=== PATIENT | male | born 1980 | race Caucasian/White ===

== ENCOUNTER 2017-10-23 16:31 | Inpatient (IN) ==
[2017-10-23] MEDS ORDERED: Sod Chloride 0.9% Inj 1,000 ML IV.SIG ONE (16:58)
--- NOTE | 2017-10-23 17:06 | ED ---
HPI General Chief Complaint: Fever Stated Complaint: Fever Time Seen by Provider: 10/23/17 16:49 History of Present Illness HPI Narrative: Patient presents to the emergency department complaining of fever and body aches. He denies no sick contacts or recent travel. T-max is 100.9 on yesterday. He reports nausea, frontoparietal headache, photophobia, cough, sore throat, night sweats 3 days, but denies rash, neck pain, diarrhea, abdominal pain, or shortness of breath. Related Data Home Medications Medication Instructions Recorded Confirmed trazodone 50 mg PO DAILY 10/23/17 10/23/17 Allergies Allergy/AdvReac Type Severity Reaction Status Date / Time peanut Allergy unsure Verified 10/23/17 16:58 Review of Systems ROS Unobtainable All other systems reviewed negative except as stated in HPI [facility] Medical History Medical History Depression (Acute) Hernia (Acute) TIA (transient ischemic attack) (Acute) Lnbmt-Ieradfxuz-Idkzn (WPW) syndrome (Acute) Social History Social History Substance History: No History of Abuse Second Hand Smoke Exposure: No Smoking Status: Never smoker How Often Do You Have a Drink Containing Alcohol: Never Recent Travel in [facility] within the Last 8 Weeks: No Recent Out of Country Travel within the Last 8 Weeks: No Exam Narrative Exam Narrative: GENERAL: No acute distress. SKIN: Focused skin assessment warm/dry. HEAD: Atraumatic. Normocephalic. Positive frontal maxillary sinus tenderness to palpation. EYES: Pupils equal and round. No scleral icterus. No injection or drainage. ENT: No nasal bleeding or discharge. Mucous membranes pink and moist. Erythematous oropharynx and enlarged tonsils without exudate. NECK: Trachea midline. No JVD. CARDIOVASCULAR: Regular rate and rhythm. No murmur appreciated. RESPIRATORY: No accessory muscle use. Clear to auscultation. Breath sounds equal bilaterally. GASTROINTESTINAL: Abdomen soft, non-tender, nondistended. Hepatic and splenic margins not palpable. MUSCULOSKELETAL: No obvious deformities. No clubbing. No cyanosis. No edema. NEUROLOGICAL: Awake and alert. No obvious cranial nerve deficits. Motor grossly within normal limits. Normal speech. PSYCHIATRIC: Appropriate mood and affect; insight and judgment normal. Procedures Lumbar Puncture Time Out Performed: Yes Patient Position: left lateral decubitus Skin Prep: Povidone-Iodine 1% Local anesthetic used: Lidocaine 1% Amount of anesthesia used (mL): 5 Spinal Needle Gauge: 20G Interspace Used: L4-L5 Fluid Initially Obtained: clear Complications: none Course Initial Documented Vital Signs Temperature 100.1 F H 10/23/17 17:34 Pulse Rate 92 H 10/23/17 17:34 Respiratory Rate 18 10/23/17 17:34 Blood Pressure 125/75 10/23/17 17:34 Pulse Oximetry 98 10/23/17 17:34 Last Documented Vital Signs Temperature 100.1 F H 10/23/17 17:36 Pulse Rate 92 H 10/23/17 17:36 Respiratory Rate 18 10/23/17 17:36 Blood Pressure 127/75 10/23/17 17:36 Pulse Oximetry 99 10/23/17 17:36 Critical Care Time Critical Care Time: Yes Total Critical Care Time: 30 Attestation: Aggregate critical care time was 30 minutes. Time to perform other separately billable procedures was not included in the critical care time. My time did not include minutes spent treating any other patients simultaneously or on activities that did not directly contribute to the patient's treatment. The services I provided to this patient were to treat and/or prevent clinically significant deterioration that could result in: , increase morbidity. I provided critical care services requiring my management, as noted below: Chart data review, documentation time, medication orders and management, vital sign assessments/reviewing monitor data, ordering and reviewing lab tests, ordering and interpreting/reviewing x-rays and diagnostic studies, care of the patient and discussion of the patient with the admitting physicians. Medical Decision Making MDM Narrative Medical decision making narrative: Patient presents to the emergency department with fever, headache, and body aches. Patient placed on conveyor monitor, continuous pulse ox, and IV access obtained. Chest x-ray, head CT, labs ordered. Patient also given 1 L IV normal saline, tylenol 650mg po. Chest x- ray shows no acute abnormality. No leukocytosis, slight decrease in hemoglobin hematocrit. Influenza and rapid strep negative. Head CT: CONCLUSION:1. Suboptimal examination degraded by diffuse motion artifact.2. No evidence of hemorrhage or mass effect. urinalysis negative for evidence of infection. Elevated lactic acid. 192: Patient refuses lumbar puncture. He has been made aware of the benefits and risks of getting and not getting the procedure respectively. I will treat for possible meningitis, 1gram IV vancomycin and 2grans IV rocephin. Admit MD made aware. Patient states he wants to "take some time and think about it," as it relates to getting the LP. 1931: Per admit MD, patient now wants LP. Will consent for LP. 2003: LP complete, no complications, see procedure note. Differential Diagnosis Differential Diagnosis: Influenza, strep pharyngitis, viral illness, pneumonia, sinusitis, meningitis Lab Data Result diagrams: 10/23/17 17:25 10/23/17 17:25 Lab Results 10/23/17 10/23/17 10/23/17 Range/Units 16:58 17:25 17:25 WBC 8.6 (4.0-11.0) th/mm3 RBC 4.11 L (4.50-5.90) mil/mm3 Hgb 12.5 L (13.0-17.0) gm/dL Hct 36.2 L (39.0-51.0) % MCV 87.9 (80.0-100.0) fL MCH 30.5 (27.0-34.0) pg MCHC 34.7 (32.0-36.0) % RDW 15.5 (11.6-17.2) % Plt Count 153 (150-450) th/mm3 MPV 8.1 (7.0-11.0) fL Prelim Diff (Auto) Slide review pending Neut % (Auto) 71.6 H (16.0-70.0) % Lymph % (Auto) 19.3 (9.0-44.0) % [place] % (Auto) 8.7 H (0.0-8.0) % Eos % (Auto) 0.0 (0.0-4.0) % Baso % (Auto) 0.4 (0.0-2.0) % Neut # (Auto) 6.2 (1.8-7.7) th/mm3 Lymph # (Auto) 1.7 (1.0-4.8) th/mm3 [place] # (Auto) 0.7 (0.0-0.9) th/mm3 Eos # (Auto) 0.0 (0.0-0.4) th/mm3 Baso # (Auto) 0.0 (0.0-0.2) th/mm3 WBC Differential . Diff Scan Auto diff confirmed Differential Comment . PT 11.0 (9.8-11.6) sec INR 1.1 Ratio APTT (24.3-30.1) sec Sodium (136-145) meq/L Potassium (3.5-5.1) meq/L Chloride (98-107) meq/L Carbon Dioxide (21.0-32.0) meq/L Anion Gap (5-15) meq/L BUN (7-18) mg/dL Creatinine (0.60-1.30) mg/dL Estimated GFR (>89) mL/min Random Glucose (74-106) mg/dL Lactic Acid (0.4-2.0) mmol/L Calcium (8.5-10.1) mg/dL Total Bilirubin (0.2-1.0) mg/dL AST (15-37) U/L ALT (12-78) U/L Alkaline Phosphatase (45-117) U/L Total Protein (6.4-8.2) g/dL Albumin (3.4-5.0) g/dL Urine Color Yellow (Yellw/Straw) Urine Clarity Clear (Clear) Urine pH 6.0 (5.0-8.5) Ur Specific [place] 1.021 (1.002-1.035) Urine Protein Negative (Neg-Trace) mg/dL Urine Glucose (UA) Negative (Negative) mg/dL Urine Ketones Negative (Negative) mg/dL Urine Occult Blood Negative (Negative) Urine Nitrate Negative (Negative) Urine Bilirubin Negative (Negative) Urine Urobilinogen 2.0 H (Less than 2) mg/dL Ur Leukocyte Esterase Negative (Negative) Urine RBC Less than 1 (0-3) /hpf Urine WBC 1 (0-5) /hpf Urine Mucus Few H (Occasional) /lpf Micro UA Comment Culture not ind Urine Culture Comments Culture not ind 10/23/17 10/23/17 10/23/17 Range/Units 17:25 17:25 18:09 WBC (4.0-11.0) th/mm3 RBC (4.50-5.90) mil/mm3 Hgb (13.0-17.0) gm/dL Hct (39.0-51.0) % MCV (80.0-100.0) fL MCH (27.0-34.0) pg MCHC (32.0-36.0) % RDW (11.6-17.2) % Plt Count (150-450) th/mm3 MPV (7.0-11.0) fL Prelim Diff (Auto) Neut % (Auto) (16.0-70.0) % Lymph % (Auto) (9.0-44.0) % [place] % (Auto) (0.0-8.0) % Eos % (Auto) (0.0-4.0) % Baso % (Auto) (0.0-2.0) % Neut # (Auto) (1.8-7.7) th/mm3 Lymph # (Auto) (1.0-4.8) th/mm3 [place] # (Auto) (0.0-0.9) th/mm3 Eos # (Auto) (0.0-0.4) th/mm3 Baso # (Auto) (0.0-0.2) th/mm3 WBC Differential Diff Scan Differential Comment PT (9.8-11.6) sec INR Ratio APTT 30.4 H (24.3-30.1) sec Sodium 137 (136-145) meq/L Potassium 3.7 (3.5-5.1) meq/L Chloride 103 (98-107) meq/L Carbon Dioxide 22.3 (21.0-32.0) meq/L Anion Gap 12 (5-15) meq/L BUN 15 (7-18) mg/dL Creatinine 0.84 (0.60-1.30) mg/dL Estimated GFR Greater than 89 (>89) mL/min Random Glucose 77 (74-106) mg/dL Lactic Acid 2.8 H (0.4-2.0) mmol/L Calcium 8.8 (8.5-10.1) mg/dL Total Bilirubin 0.5 (0.2-1.0) mg/dL AST 23 (15-37) U/L ALT 27 (12-78) U/L Alkaline Phosphatase 69 (45-117) U/L Total Protein 7.6 (6.4-8.2) g/dL Albumin 3.7 (3.4-5.0) g/dL Urine Color (Yellw/Straw) Urine Clarity (Clear) Urine pH (5.0-8.5) Ur Specific [place] (1.002-1.035) Urine Protein (Neg-Trace) mg/dL Urine Glucose (UA) (Negative) mg/dL Urine Ketones (Negative) mg/dL Urine Occult Blood (Negative) Urine Nitrate (Negative) Urine Bilirubin (Negative) Urine Urobilinogen (Less than 2) mg/dL Ur Leukocyte Esterase (Negative) Urine RBC (0-3) /hpf Urine WBC (0-5) /hpf Urine Mucus (Occasional) /lpf Micro UA Comment Urine Culture Comments Imaging Data Radiologist's impression: Chest X-Ray 10/23/17 16:58 CONCLUSION: No acute cardiopulmonary disease. There is no evidence of pneumonia. Head CT 10/23/17 16:58 CONCLUSION: 1. Suboptimal examination degraded by diffuse motion artifact. 2. No evidence of hemorrhage or mass effect. Discharge Plan Discharge Disposition Patient Disposition: 30 Still Patient Discharge Condition Condition: Stable Discharge Details Diagnosis: Fever, Headache, SIRS (systemic inflammatory response syndrome) Physicians Team ED Provider: Lovely Celis Primary Care Provider: Primary Care SerenaiMaryuir Rxs /Orders / Referrals /Forms Prescriptions: No Action trazodone 50 mg Tablet 50 mg PO DAILY RF: 0 Discharge Interventions Interventions: Vital Signs Last Done: 10/23/17 17:34 Status ED Status: With Doctor
--- NOTE | 2017-10-23 17:21 | XR ---
EXAM DATE: 10/23/2017 5:17 PM EDT AGE/SEX: 36 years / Male INDICATIONS: Fever, shortness of breath and chest pain. CLINICAL DATA: This is the patient's initial encounter. Patient reports that signs and symptoms have been present for 2 days and indicates a pain score of 8/10. MEDICAL/SURGICAL HISTORY: None. None. COMPARISON: No prior exams available for comparison. FINDINGS: A single AP view of the chest demonstrates the lungs to be symmetrically aerated without evidence of mass, infiltrate or effusion. The cardiomediastinal contours are unremarkable. Osseous structures a re intact. CONCLUSION: No acute cardiopulmonary disease. There is no evidence of pneumonia. Electronically signed by: Chacorta Mark MD 10/23/2017 5:20 PM EDT
[2017-10-23 17:57] LABS: Baso % (Auto) 0.4 % (0.0-2.0); Hematocrit 36.2 % (39.0-51.0); Hemoglobin 12.5 gm/dL (13.0-17.0); Lymph # (Auto) 1.7 th/mm3 (1.0-4.8); Lymph % (Auto) 19.3 % (9.0-44.0); Mean Corpuscular HGB Conc 34.7 % (32.0-36.0); Mean Corpuscular Hemoglobin 30.5 pg (27.0-34.0); Mean Corpuscular Volume 87.9 fL (80.0-100.0); Mean Platelet Volume 8.1 fL (7.0-11.0); Mono # (Auto) 0.7 th/mm3 (0.0-0.9); Mono % (Auto) 8.7 % (0.0-8.0); Neut # (Auto) 6.2 th/mm3 (1.8-7.7); Neut % (Auto) 71.6 % (16.0-70.0); Platelet Count 153 th/mm3 (150-450); Red Blood Count 4.11 mil/mm3 (4.50-5.90); Red Cell Distribution Width 15.5 % (11.6-17.2); White Blood Count 8.6 th/mm3 (4.0-11.0)
[2017-10-23] MEDS ORDERED: Acetaminophen 325 MG Tablet PO ONE (17:57)
[2017-10-23 18:16] LABS: Alanine Aminotransferase 27 U/L (12-78); Albumin 3.7 g/dL (3.4-5.0); Anion Gap 12 meq/L (5-15); Aspartate Aminotransferase 23 U/L (15-37); Blood Urea Nitrogen 15 mg/dL (7-18); Calcium 8.8 mg/dL (8.5-10.1); Carbon Dioxide 22.3 meq/L (21.0-32.0); Chloride 103 meq/L (98-107); Glomerular Filtration Rate Greater Than 89 mL/min (>89); Glucose,Random 77 mg/dL (74-106); Potassium 3.7 meq/L (3.5-5.1); Sodium 137 meq/L (136-145)
[2017-10-23 18:19] LABS: Alkaline Phosphatase 69 U/L (45-117); Total Protein 7.6 g/dL (6.4-8.2)
[2017-10-23 18:28] LABS: Bilirubin,Urine Negative (Negative); Clarity,Urine Clear (Clear); Color,Urine Yellow (Yellw/Straw); Glucose,Urine (UA) Negative (Negative); Leukocyte Esterase,Urine Negative (Negative); Mucus,Urine Few /lpf (Occasional); Nitrite,Urine Negative (Negative); Specific Gravity,Urine 1.021 (1.002-1.035)
--- NOTE | 2017-10-23 18:55 | CT ---
EXAM DATE: 10/23/2017 6:48 PM EDT AGE/SEX: 36 years / Male INDICATIONS: Headache with fever. CLINICAL DATA: This is the patient's initial encounter. Patient reports that signs and symptoms have been present for 1 week and indicates a pain score of 8/10. MEDICAL/SURGICAL HISTORY: None. None. RADIATION DOSE: 56.34 CTDI (mGy) COMPARISON: No prior exams available for comparison. TECHNIQUE: CT of the head without contrast. Using automated exposure control and adjustment of the mA and/or kV according to patient size, radiation dose was kept as low as reasonably achievable to ob tain optimal diagnostic quality images. DICOM format image data is available electronically for revi ew and comparison. FINDINGS: The study is degraded by diffuse motion artifact. Cerebrum: The ventricles are normal for age. No evidence of midline shift, mass lesion, hemorrhage or acute infarction. No extraaxial fluid collections are seen. Posterior Fossa: The cerebellum and brainstem are intact. The 4th ventricle is midline. The cerebe llopontine angle is unremarkable. Extracranial: The visualized portion of the orbits is intact. Skull: The calvaria is intact. No evidence of skull fracture. CONCLUSION: 1. Suboptimal examination degraded by diffuse motion artifact. 2. No evidence of hemorrhage or mass effect. Electronically signed by: Chacorta Mark MD 10/23/2017 6:54 PM EDT
[2017-10-23 19:02] LABS: INR 1.1 Ratio
[2017-10-23] MEDS ORDERED: Vancomycin Inj 1 GM/200 ML PIGGYBACK IV.SIG ONE (19:30)
[2017-10-23] MEDS ORDERED: Morphine Inj 4 MG/ML Vial IV.PUSH PRN (19:50)
[2017-10-23] MEDS ORDERED: Bisacodyl 10 MG Supp RECTAL PRN (19:50)
[2017-10-23] MEDS ORDERED: Acetaminophen 325 MG Tablet PO PRN (19:50)
--- NOTE | 2017-10-23 19:52 | P.HPIM ---
History of Present Illness Primary Care Physician: No Primary Care Physician History of Present Illness: This is a 36-year-old male with a PMH of Depression, WPW and h/o TIA who presented to the ER w/ complaints of severe headache, fever and generalized myalgias. Denies h/o headaches. Notes intense photophobia since today and non- productive cough. No sick contacts, no recent travel. On arrival, BP 125/75, HR 92, O2 sat 98% on RA, Temp 100.1. WBC normal however mildly elevated neutrophil count. Chemistry unremarkable except for Lactic Acid 2.8. UA negative. CT Head with no acute findings. CXR negative. LP recommended by ER physician, initially declined states "I want to think about it", however now agreeable to proceed. LP done successfully by ER physician, pending results. S /p Vanc/Rocephin. - Diagnosis (1) SIRS (systemic inflammatory response syndrome) (2) Headache Review of Systems All other systems reviewed negative except as stated in HPI PMFSH - History History Provided By: Patient - Medical History Medical History: Medical History (Last Updated 10/23/17 @ 16:46 by Laurence Jones) Depression Hernia TIA (transient ischemic attack) Yrqwo-Ejrhbuubg-Eggtm (WPW) syndrome - Tobacco History Second Hand Smoke Exposure: No Tobacco Use In Past 30 Days: No Smoking Status: Never smoker - Alcohol History How Often Do You Have a Drink Containing Alcohol: Never - Substance Use History Substance History: No History of Abuse - Travel History Recent Travel in the [place] Within the Last 8 Weeks: No Recent Travel Out of the Country Within the Last 8 Weeks: No - Immunization History Tetanus Immunization: Unsure Hx Influenza Vaccine This Season: No Medications and Allergies Active Medications: Active Medications Vancomycin/Sodium Chloride (Vancomycin Inj) 1 gm in 200 mls @ 200 mls/hr IV.SIG ONCE ONE Stop: 10/23/17 20:29 Ceftriaxone Sodium 2,000 mg/ (Sodium Chloride) 100 mls @ 200 mls/hr IV.SIG ONCE ONE Stop: 10/23/17 19:59 Allergies Allergy/AdvReac Type Severity Reaction Status Date / Time peanut Allergy unsure Verified 10/23/17 16:58 Home Medications Medication Instructions Recorded Confirmed Type trazodone 50 mg PO DAILY 10/23/17 10/23/17 History Exam Vital signs: Vital Signs 10/23/17 17:34 10/23/17 17:36 Temperature 100.1 F H 100.1 F H Pulse Rate 92 H 92 H Respiratory Rate 18 18 Blood Pressure 125/75 127/75 Pulse Oximetry 98 98 Intake & Output 10/23/17 10/23/17 10/24/17 06:59 18:59 06:59 Weight 115 kg Narrative: PE: GENERAL: Middle-aged white male in mild distress due to headache, sitting in the dark, appears uncomfortable. HEENT: PERRLA, EOMI. No scleral icterus or conjunctival pallor. No lid lag or facial droop. Mild pharyngeal erythema. CARDIOVASCULAR: Regular rate and rhythm. No obvious murmurs to auscultation. No chest tenderness to palpation. RESPIRATORY: No obvious rhonchi or wheezing. Clear to auscultation. Breath sounds equal bilaterally. GASTROINTESTINAL: Abdomen soft, non-tender, nondistended. BS normal. MUSCULOSKELETAL: Extremities without clubbing, cyanosis, or edema. No obvious deformities. NEUROLOGICAL: Awake, alert and oriented x4. No focal neurologic deficits. Moving both upper and lower extremities spontaneously. Results - Labs CBC & Chem 7: 10/23/17 17:25 10/23/17 17:25 Labs: Short CBC 10/23/17 Range/Units 17:25 WBC 8.6 (4.0-11.0) th/mm3 Hgb 12.5 L (13.0-17.0) gm/dL Hct 36.2 L (39.0-51.0) % Plt Count 153 (150-450) th/mm3 BMP 10/23/17 17:25 Sodium 137 Potassium 3.7 Chloride 103 Carbon Dioxide 22.3 BUN 15 Creatinine 0.84 Calcium 8.8 Liver Function 10/23/17 Range/Units 17:25 Total Bilirubin 0.5 (0.2-1.0) mg/dL AST 23 (15-37) U/L ALT 27 (12-78) U/L Alkaline Phosphatase 69 (45-117) U/L Albumin 3.7 (3.4-5.0) g/dL Urine 10/23/17 Range/Units 16:58 Urine Color Yellow (Yellw/Straw) Urine Clarity Clear (Clear) Urine pH 6.0 (5.0-8.5) Ur Specific [place] 1.021 (1.002-1.035) Urine Protein Negative (Neg-Trace) mg/dL Urine Glucose (UA) Negative (Negative) mg/dL - Imaging Impressions Chest X-Ray 10/23/17 16:58 CONCLUSION: No acute cardiopulmonary disease. There is no evidence of pneumonia. Head CT 10/23/17 16:58 CONCLUSION: 1. Suboptimal examination degraded by diffuse motion artifact. 2. No evidence of hemorrhage or mass effect. Caprini VTE Risk Assessment Caprini VTE Risk Assessment: No/Low Risk (score <= 1) Caprini Risk Assessment Model: Point Value = 1 Point Value = 2 Point Value = 3 Point Value = 5 Age 41-60 Minor surgery BMI > 25 kg/m2 Swollen legs Varicose veins or History of unexplained or recurrent spontaneous Oral contraceptives or hormone replacement Sepsis (< 1 month) Serious lung disease, including pneumonia (< 1 month) Abnormal pulmonary function Acute myocardial infarction Congestive heart failure (< 1 month) History of inflammatory bowel disease Medical patient at bed rest Age 61-74 Arthroscopic surgery Major open surgery (> 45 min) Laparoscopic surgery (> 45 min) Malignancy Confined to bed (> 72 hours) Immobilizing plaster cast Central venous access Age >= 75 History of VTE Family history of VTE Factor V Leiden Prothrombin [id number] Lupus anticoagulant Anticardiolipin antibodies Elevated serum homocysteine Heparin-induced thrombocytopenia Other congenital or acquired thrombophilia Stroke (< 1 month) Elective arthroplasty Hip, pelvis, or leg fracture Acute spinal cord injury (< 1 month) Prophylaxis Regimen: Total Risk Factor Score Risk Level Prophylaxis Regimen 0-1 Low Early ambulation 2 Moderate Order ONE of the following: *Sequential Compression Device (SCD) *Heparin 5000 units SQ BID 3-4 Higher Order ONE of the following medications: *Heparin 5000 units SQ TID *Enoxaparin/Lovenox 40 mg SQ daily (WT < 150 kg, CrCl > 30 mL/min) *Enoxaparin/Lovenox 30 mg SQ daily (WT < 150 kg, CrCl > 10-29 mL/min) *Enoxaparin/Lovenox 30 mg SQ BID (WT < 150 kg, CrCl > 30 mL/min) AND/OR *Sequential Compression Device (SCD) 5 or more Highest Order ONE of the following medications: *Heparin 5000 units SQ TID (Preferred with Epidurals) *Enoxaparin/Lovenox 40 mg SQ daily (WT < 150 kg, CrCl > 30 mL/min) *Enoxaparin/Lovenox 30 mg SQ daily (WT < 150 kg, CrCl > 10-29 mL/min) *Enoxaparin/Lovenox 30 mg SQ BID (WT < 150 kg, CrCl > 30 mL/min) AND *Sequential Compression Device (SCD) Assessment and Plan - Assessment (1) SIRS (systemic inflammatory response syndrome) Code(s): R65.10 - Systemic inflammatory response syndrome (SIRS) of non- infectious origin without acute organ dysfunction Status: Acute (2) Headache Code(s): R51 - Headache Status: Acute - Plan A/P: 1. SIRS: Temp 100.9, HR 90, Source-unclear, likely viral, r/o Meningitis in light of headache/photophobia. U/a negative, CXR w/ no acute findings, images reviewed by me. 2. Headache: acute onset severe frontal headache w/ associated photophobia, no h/o headache. R/o meningitis in light of fever/SIRS. CT Head w/ no acute findings, images reviewed. S/p LP by ER physician, pending results. Continue Vanc/Rocephin. 3. DVT Prophylaxis: SCD/Teds 4. Social work for d/c planning as needed 5. Case discussed w/ ER physician at length, labs/records/imaging reviewed by me.
[2017-10-23] MEDS ORDERED: Vancomycin Consult Pharmacy 1 EACH OTHER SCH (20:00)
[2017-10-23] MEDS: Senna/Docusate Sodium 8.6/50 MG Tablet PO SCH (21:26)
[2017-10-23] MEDS: Morphine Inj 4 MG/ML Vial IV.PUSH PRN (21:26)
[2017-10-23] MEDS: Sod Chloride 0.9% Inj 1,000 ML IV.CONT SCH (21:36)
[2017-10-23] MEDS ORDERED: Vancomycin Inj 2,000 MG in Sodium Chlor 0.9% Inj 500 ML IV.SIG ONE (22:00)
[2017-10-23 22:13] LABS: Lymphocytes, CSF 30 %; Monocytes,CSF 2 %; Neutrophils,CSF 68 %; RBC on Tube 4 18 /mm3
[2017-10-23 22:32] LABS: RBC on Tube 1 0 /mm3
[2017-10-23] MEDS ORDERED: HYDROmorphone PF Inj 2 MG/ML Vial IV.PUSH ONE (23:22)
[2017-10-23] MEDS: Temazepam 15 MG Capsule PO PRN (23:32)
[2017-10-24] MEDS: Vancomycin Inj 1,500 MG in Sodium Chlor 0.9% Inj 500 ML IV.SIG SCH ×3 (06:04→21:39)
[2017-10-24] MEDS: Morphine Inj 4 MG/ML Vial IV.PUSH PRN ×3 (08:27→20:21)
[2017-10-24] MEDS: traZODone 50 MG Tablet PO SCH ×3 (08:27→20:20)
[2017-10-24] MEDS: Sod Chloride 0.9% Inj 1,000 ML IV.CONT SCH ×3 (08:27→18:00)
[2017-10-24] MEDS: Senna/Docusate Sodium 8.6/50 MG Tablet PO SCH ×2 (08:27→20:20)
--- NOTE | 2017-10-24 09:14 | P.PNIM ---
Subjective Interval history: Mr. Murray was afebrile with borderline tachycardia overnight. Patient states that he has continued headache and photophobia; he also reports back pain after lumbar puncture which radiates to his legs. Patient also reports general body aches. No neck stiffness. No extremity numbness/acute weakness reported. Patient denies drug use, exposure to foreign people/places, or close animal contact w/ exception of his cat. No new sexual contacts; has fiance. Sees Psych provider at "[facility]" for Trazodone and Buspirone. Patient also reports cough for a couple months. His fiance states he has been losing some weight for several months. 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 He states that he occasionally faints; no recent lightheadedness for the last 2 weeks but has had lightheadedness occasionally. Physical Exam Vital signs: Vital Signs 10/23/17 17:34 10/23/17 17:36 10/23/17 20:15 Temperature 100.1 F H 100.1 F H 99.4 F Pulse Rate 92 H 92 H 83 Respiratory Rate 18 18 16 Blood Pressure 125/75 127/75 121/65 Pulse Oximetry 98 98 98 10/23/17 21:52 10/23/17 22:22 10/23/17 23:58 Temperature Pulse Rate Respiratory Rate 14 18 18 Blood Pressure Pulse Oximetry 10/24/17 00:00 10/24/17 04:00 10/24/17 04:55 Temperature 98.1 F 99.1 F Pulse Rate 93 H 105 H Respiratory Rate 23 23 18 Blood Pressure 141/67 H 122/76 Pulse Oximetry 100 99 10/24/17 08:00 Temperature 98.9 F Pulse Rate 92 H Respiratory Rate 17 Blood Pressure 115/69 Pulse Oximetry 100 Intake & Output 10/23/17 10/24/17 10/24/17 18:59 06:59 18:59 Intake Total 720 / 720 Output Total 800 / 800 Balance -80 / -80 Weight 115 kg 115 kg Intake: Oral 720 / 720 Output: Urine 800 / 800 Other: Weight On Admission 115 kg Narrative: GENERAL: Patient occasionally moaning; reports pain. Not in distress when answering questions HEENT: EOM grossly I. EOMI. PERRLA. Some photophobia NECK: No neck stiffness; normal ROM. No appreciated lymphadenopathy NEURO: Grossly normal CN. Normal peripheral sensation/motor function with exception of generalized weakness. Patient able to stand despite weakness MSK: Grossly normal ROM; some general weakness CARDIOVASCULAR: Regular rate and rhythm w/o murmurs. Grossly normal perfusion RESPIRATORY: CTAB; normal rate GASTROINTESTINAL: Abdomen soft, non-tender, nondistended. BS normal Results - Labs CBC & Chem 7: 10/23/17 17:25 10/23/17 17:25 Laboratory Results - last 24 hr 10/23/17 10/23/17 10/23/17 16:58 17:25 17:25 WBC 8.6 RBC 4.11 L Hgb 12.5 L Hct 36.2 L MCV 87.9 MCH 30.5 MCHC 34.7 RDW 15.5 Plt Count 153 MPV 8.1 Prelim Diff (Auto) Slide review pending Neut % (Auto) 71.6 H Lymph % (Auto) 19.3 [place] % (Auto) 8.7 H Eos % (Auto) 0.0 Baso % (Auto) 0.4 Neut # (Auto) 6.2 Lymph # (Auto) 1.7 [place] # (Auto) 0.7 Eos # (Auto) 0.0 Baso # (Auto) 0.0 WBC Differential . Diff Scan Auto diff confirmed Differential Comment . PT 11.0 INR 1.1 APTT Sodium Potassium Chloride Carbon Dioxide Anion Gap BUN Creatinine Estimated GFR Random Glucose Lactic Acid Calcium Total Bilirubin AST ALT Alkaline Phosphatase Total Protein Albumin Urine Color Yellow Urine Clarity Clear Urine pH 6.0 Ur Specific [place] 1.021 Urine Protein Negative Urine Glucose (UA) Negative Urine Ketones Negative Urine Occult Blood Negative Urine Nitrate Negative Urine Bilirubin Negative Urine Urobilinogen 2.0 H Ur Leukocyte Esterase Negative Urine RBC Less than 1 Urine WBC 1 Urine Mucus Few H Micro UA Comment Culture not ind Urine Culture Comments Culture not ind CSF Volume (1) CSF Supernat Color (1) CSF Gross Blood (1) CSF WBC (1) CSF RBC (1) CSF Volume (2) CSF Supernat Color (2) CSF Gross Blood (2) CSF Volume (3) CSF Supernat Color (3) CSF Gross Blood (3) CSF Volume (4) CSF Supernat Color (4) CSF Gross Blood (4) CSF WBC (4) CSF RBC (4) CSF Neutrophils % CSF Lymphocytes % CSF Monocytes % CSF Glucose CSF Total Protein 10/23/17 10/23/17 10/23/17 17:25 17:25 18:09 WBC RBC Hgb Hct MCV MCH MCHC RDW Plt Count MPV Prelim Diff (Auto) Neut % (Auto) Lymph % (Auto) [place] % (Auto) Eos % (Auto) Baso % (Auto) Neut # (Auto) Lymph # (Auto) [place] # (Auto) Eos # (Auto) Baso # (Auto) WBC Differential Diff Scan Differential Comment PT INR APTT 30.4 H Sodium 137 Potassium 3.7 Chloride 103 Carbon Dioxide 22.3 Anion Gap 12 BUN 15 Creatinine 0.84 Estimated GFR Greater than 89 Random Glucose 77 Lactic Acid 2.8 H Calcium 8.8 Total Bilirubin 0.5 AST 23 ALT 27 Alkaline Phosphatase 69 Total Protein 7.6 Albumin 3.7 Urine Color Urine Clarity Urine pH Ur Specific [place] Urine Protein Urine Glucose (UA) Urine Ketones Urine Occult Blood Urine Nitrate Urine Bilirubin Urine Urobilinogen Ur Leukocyte Esterase Urine RBC Urine WBC Urine Mucus Micro UA Comment Urine Culture Comments CSF Volume (1) CSF Supernat Color (1) CSF Gross Blood (1) CSF WBC (1) CSF RBC (1) CSF Volume (2) CSF Supernat Color (2) CSF Gross Blood (2) CSF Volume (3) CSF Supernat Color (3) CSF Gross Blood (3) CSF Volume (4) CSF Supernat Color (4) CSF Gross Blood (4) CSF WBC (4) CSF RBC (4) CSF Neutrophils % CSF Lymphocytes % CSF Monocytes % CSF Glucose CSF Total Protein 10/23/17 10/23/17 10/23/17 20:45 20:45 20:45 WBC RBC Hgb Hct MCV MCH MCHC RDW Plt Count MPV Prelim Diff (Auto) Neut % (Auto) Lymph % (Auto) [place] % (Auto) Eos % (Auto) Baso % (Auto) Neut # (Auto) Lymph # (Auto) [place] # (Auto) Eos # (Auto) Baso # (Auto) WBC Differential Diff Scan Differential Comment PT INR APTT Sodium Potassium Chloride Carbon Dioxide Anion Gap BUN Creatinine Estimated GFR Random Glucose Lactic Acid Calcium Total Bilirubin AST ALT Alkaline Phosphatase Total Protein Albumin Urine Color Urine Clarity Urine pH Ur Specific [place] Urine Protein Urine Glucose (UA) Urine Ketones Urine Occult Blood Urine Nitrate Urine Bilirubin Urine Urobilinogen Ur Leukocyte Esterase Urine RBC Urine WBC Urine Mucus Micro UA Comment Urine Culture Comments CSF Volume (1) 5.0 CSF Supernat Color (1) Clear CSF Gross Blood (1) 0 CSF WBC (1) 25 H CSF RBC (1) 0 CSF Volume (2) 5.0 CSF Supernat Color (2) Clear CSF Gross Blood (2) 0 CSF Volume (3) 5.0 CSF Supernat Color (3) Clear CSF Gross Blood (3) 0 CSF Volume (4) 2.0 CSF Supernat Color (4) Clear CSF Gross Blood (4) 0 CSF WBC (4) 8 CSF RBC (4) 18 H CSF Neutrophils % 68 CSF Lymphocytes % 30 CSF Monocytes % 2 CSF Glucose 47 CSF Total Protein 10/23/17 20:45 WBC RBC Hgb Hct MCV MCH MCHC RDW Plt Count MPV Prelim Diff (Auto) Neut % (Auto) Lymph % (Auto) [place] % (Auto) Eos % (Auto) Baso % (Auto) Neut # (Auto) Lymph # (Auto) [place] # (Auto) Eos # (Auto) Baso # (Auto) WBC Differential Diff Scan Differential Comment PT INR APTT Sodium Potassium Chloride Carbon Dioxide Anion Gap BUN Creatinine Estimated GFR Random Glucose Lactic Acid Calcium Total Bilirubin AST ALT Alkaline Phosphatase Total Protein Albumin Urine Color Urine Clarity Urine pH Ur Specific [place] Urine Protein Urine Glucose (UA) Urine Ketones Urine Occult Blood Urine Nitrate Urine Bilirubin Urine Urobilinogen Ur Leukocyte Esterase Urine RBC Urine WBC Urine Mucus Micro UA Comment Urine Culture Comments CSF Volume (1) CSF Supernat Color (1) CSF Gross Blood (1) CSF WBC (1) CSF RBC (1) CSF Volume (2) CSF Supernat Color (2) CSF Gross Blood (2) CSF Volume (3) CSF Supernat Color (3) CSF Gross Blood (3) CSF Volume (4) CSF Supernat Color (4) CSF Gross Blood (4) CSF WBC (4) CSF RBC (4) CSF Neutrophils % CSF Lymphocytes % CSF Monocytes % CSF Glucose CSF Total Protein 41.7 Microbiology 10/23/17 20:45 Lumbar Puncture Gram Stain - Final 10/23/17 20:45 Lumbar Puncture CSF Culture - Preliminary No growth in 24 hours 10/23/17 17:27 Nasal Wash Influenza Types A,B Antigen - Final Negative for FLU A and B antigen Infection due to influenza A or B cannot be ruled out since the antigen present in the sample may be below the detection limit of the test. 10/23/17 17:25 Throat Group A Streptococcus Screen (DONY) - Final - Imaging Impressions Chest X-Ray 10/23/17 16:58 CONCLUSION: No acute cardiopulmonary disease. There is no evidence of pneumonia. Head CT 10/23/17 16:58 CONCLUSION: 1. Suboptimal examination degraded by diffuse motion artifact. 2. No evidence of hemorrhage or mass effect. Assessment and Plan - Assessment (1) SIRS (systemic inflammatory response syndrome) Code(s): R65.10 - Systemic inflammatory response syndrome (SIRS) of non- infectious origin without acute organ dysfunction Status: Acute (2) Headache Code(s): R51 - Headache Status: Acute (3) Anxiety Code(s): F41.9 - Anxiety disorder, unspecified Status: Acute - Plan Mr. Murray is a 36 yo M with: Fever/MURRAY/photophobia/body aches Impression: Unclear etiology; suspect viral illness. CXR and UA unremarkable.No obvious risk factors for meningitis. Due to concern in ED for possible meningitis, CSF studies obtained CSF- WBC 25, Glucose 47, total protein 41.7 (not suggestive of bacterial or viral meningitis) Head CT unremarkable Labs: No leukocytosis, lactic acid 2.8 Influenza testing negative Cultures: blood and CSF studies pending -Will continue empiric Vanc/Rocephin at this time; meningitis no longer likely but unclear etiology of symptoms so will look more for alternate diagnosis and await repeat labs before stopping -Will follow blood/CSF cultures -Will repeat lactic acid, will check CRP -Will check UDS, will discuss HIV screening Weakness Impression: patient reports general weakness; fiance reports weight loss. Seen to be weak in exam room, likely for acute viral illness -Will order PT eval HIstory WPW Impression: Patient reports occasional fainting -Will keep on Telemetry Psychiatric Impression: Patient reports anxiety on Trazodone and Buspirone. Suspect there may be an anxiety component relating to current symptoms -Will continue Trazodone and Buspirone Lack of PCP -Will order CM consult to give list of local providers DVT PPX SCD's Code Status: Full code
[2017-10-24 09:35] LABS: Baso % (Auto) 0.3 % (0.0-2.0); Eos % (Auto) 0.2 % (0.0-4.0); Hematocrit 38.3 % (39.0-51.0); Hemoglobin 13.2 gm/dL (13.0-17.0); Lymph # (Auto) 1.6 th/mm3 (1.0-4.8); Lymph % (Auto) 22.4 % (9.0-44.0); Mean Corpuscular HGB Conc 34.4 % (32.0-36.0); Mean Corpuscular Hemoglobin 30.5 pg (27.0-34.0); Mean Corpuscular Volume 88.5 fL (80.0-100.0); Mean Platelet Volume 8.2 fL (7.0-11.0); Mono # (Auto) 0.6 th/mm3 (0.0-0.9); Mono % (Auto) 8.5 % (0.0-8.0); Neut # (Auto) 4.9 th/mm3 (1.8-7.7); Neut % (Auto) 68.6 % (16.0-70.0); Platelet Count 150 th/mm3 (150-450); Red Blood Count 4.32 mil/mm3 (4.50-5.90); Red Cell Distribution Width 15.8 % (11.6-17.2); White Blood Count 7.2 th/mm3 (4.0-11.0)
[2017-10-24 09:59] LABS: Albumin 3.3 g/dL (3.4-5.0); Anion Gap 10 meq/L (5-15); Aspartate Aminotransferase 19 U/L (15-37); Blood Urea Nitrogen 8 mg/dL (7-18); Calcium 8.2 mg/dL (8.5-10.1); Carbon Dioxide 21.3 meq/L (21.0-32.0); Chloride 108 meq/L (98-107); Glomerular Filtration Rate Greater Than 89 mL/min (>89); Glucose,Random 97 mg/dL (74-106); Potassium 3.8 meq/L (3.5-5.1); Sodium 139 meq/L (136-145)
[2017-10-24 10:00] LABS: Alanine Aminotransferase 22 U/L (12-78)
[2017-10-24 10:03] LABS: Alkaline Phosphatase 66 U/L (45-117); Total Protein 6.9 g/dL (6.4-8.2)
[2017-10-24 11:56] LABS: Amphetamine Screen,Urine Neg (Neg); Barbiturate Screen,Urine Neg (Neg); Cannabinoid Screen,Urine Neg (Neg); Cocaine Screen,Urine Neg (Neg)
[2017-10-24 11:57] LABS: Opiate Screen,Urine Neg (Neg)
[2017-10-24] MEDS: Temazepam 15 MG Capsule PO PRN (21:39)
[2017-10-25 04:01] LABS: Baso # (Auto) 0.1 th/mm3 (0.0-0.2); Baso % (Auto) 0.8 % (0.0-2.0); Eos # (Auto) 0.1 th/mm3 (0.0-0.4); Eos % (Auto) 0.9 % (0.0-4.0); Hematocrit 36.8 % (39.0-51.0); Hemoglobin 12.9 gm/dL (13.0-17.0); Lymph % (Auto) 28.3 % (9.0-44.0); Mean Corpuscular HGB Conc 34.9 % (32.0-36.0); Mean Corpuscular Hemoglobin 30.6 pg (27.0-34.0); Mean Corpuscular Volume 87.7 fL (80.0-100.0); Mean Platelet Volume 7.8 fL (7.0-11.0); Mono # (Auto) 0.5 th/mm3 (0.0-0.9); Mono % (Auto) 7.2 % (0.0-8.0); Neut # (Auto) 4.4 th/mm3 (1.8-7.7); Neut % (Auto) 62.8 % (16.0-70.0); Platelet Count 137 th/mm3 (150-450); Red Cell Distribution Width 15.5 % (11.6-17.2); White Blood Count 6.9 th/mm3 (4.0-11.0)
[2017-10-25 04:19] LABS: Anion Gap 6 meq/L (5-15); Blood Urea Nitrogen 9 mg/dL (7-18); Calcium 8.4 mg/dL (8.5-10.1); Carbon Dioxide 25.6 meq/L (21.0-32.0); Chloride 109 meq/L (98-107); Glomerular Filtration Rate Greater Than 89 mL/min (>89); Glucose,Random 89 mg/dL (74-106); Potassium 3.9 meq/L (3.5-5.1); Sodium 141 meq/L (136-145)
[2017-10-25] MEDS: Sod Chloride 0.9% Inj 1,000 ML IV.CONT SCH ×2 (05:00→13:51)
[2017-10-25 05:05] LABS: Platelet Estimate Normal (Normal); Platelet Morphology Normal (Normal); RBC Morphology Normal (Normal)
[2017-10-25] MEDS: Vancomycin Inj 1,500 MG in Sodium Chlor 0.9% Inj 500 ML IV.SIG SCH (05:45)
[2017-10-25] MEDS ORDERED: Pharmacy Ordered Lab Info OTHER ONE (05:45)
[2017-10-25] MEDS: Morphine Inj 4 MG/ML Vial IV.PUSH PRN (05:52)
[2017-10-25] MEDS: Senna/Docusate Sodium 8.6/50 MG Tablet PO SCH ×2 (09:31→21:07)
--- NOTE | 2017-10-25 17:31 | P.PNIM ---
Subjective Interval history: Mr. Murray was afebrile with stable VS overnight. Patient states that he has continued headache but that his photophobia and back pain are improving. Patient states that he has felt weak at times over the past several months; he had to use walker with physical therapy. He is not sure why he has been losing weight. No reported chest pain or shortness of breath. patient has not had bowel movement since admission. Patient reports decreased urination since admission and pain when starting to void. Physical Exam Vital signs: Vital Signs 10/24/17 20:00 10/24/17 20:07 10/24/17 20:51 Temperature 98.1 F Pulse Rate 78 74 Respiratory Rate 16 18 Blood Pressure 108/56 L Pulse Oximetry 98 10/25/17 00:00 10/25/17 00:50 10/25/17 04:00 Temperature 98.2 F 98.4 F Pulse Rate 82 75 93 H Respiratory Rate 16 16 Blood Pressure 103/57 L 107/55 L Pulse Oximetry 98 98 10/25/17 06:00 10/25/17 06:20 10/25/17 08:00 Temperature 98.5 F Pulse Rate 76 87 Respiratory Rate 18 19 Blood Pressure 113/69 Pulse Oximetry 99 10/25/17 12:00 10/25/17 16:00 Temperature 98.3 F 97.9 F Pulse Rate 71 78 Respiratory Rate 19 19 Blood Pressure 122/75 132/62 Pulse Oximetry 99 99 Intake & Output 10/24/17 10/25/17 10/25/17 18:59 06:59 18:59 Intake Total 3720 / 3720 1974 Output Total 1050 / 1050 0 / 0 Balance 2670 / 2670 1974 Weight 58.3 kg Intake: IV 3380 / 3380 1615 / 1615 NS Inj 1,000 ML @ 100 mls/hr IV 2000 / 2000 1000 / 1000 .CONT .Q10H ABEL Rx#:[id number] Vancomycin Inj 1,500 MG In NS 1280 / 1280 515 / 515 Inj 500 ML @ 250 mls/hr IV.SIG Q8H ABEL Rx#:[id number] Rocephin Inj 2,000 MG In NS Inj 100 / 100 100 / 100 100 ML @ 200 mls/hr IV.SIG Q12H ABEL Rx#:[id number] Oral 340 / 340 360 / 360 Output: Urine 1050 / 1050 0 / 0 Other: # Bowel Movements 0 Narrative: GENERAL: no acute distress HEENT: EOMI. NEURO: Grossly normal CN. Normal peripheral sensation/motor function with exception of generalized weakness. Seemingly improved from last exam PSYCH: Patient appears less anxious, answers questions more than previously MSK: Grossly normal ROM; some general weakness CARDIOVASCULAR: Regular rate and rhythm w/o murmurs. Grossly normal perfusion RESPIRATORY: CTAB; normal rate GASTROINTESTINAL: Abdomen soft, some suprapubic tenderness, nondistended. BS normal Results - Labs CBC & Chem 7: 10/25/17 03:30 10/25/17 03:30 Laboratory Results - last 24 hr 10/25/17 10/25/17 10/25/17 03:30 03:30 05:45 WBC 6.9 RBC 4.20 L Hgb 12.9 L Hct 36.8 L MCV 87.7 MCH 30.6 MCHC 34.9 RDW 15.5 Plt Count 137 L MPV 7.8 Prelim Diff (Auto) Slide review pending Neut % (Auto) 62.8 Lymph % (Auto) 28.3 [place] % (Auto) 7.2 Eos % (Auto) 0.9 Baso % (Auto) 0.8 Neut # (Auto) 4.4 Lymph # (Auto) 2.0 [place] # (Auto) 0.5 Eos # (Auto) 0.1 Baso # (Auto) 0.1 WBC Differential . Diff Scan Auto diff confirmed Differential Comment . Platelet Estimate Normal Platelet Morphology Normal RBC Morphology Normal Sodium 141 Potassium 3.9 Chloride 109 H Carbon Dioxide 25.6 Anion Gap 6 BUN 9 Creatinine 0.78 Estimated GFR Greater than 89 Random Glucose 89 Calcium 8.4 L Vancomycin Trough 24.9 H Microbiology 10/23/17 17:27 Blood - Peripheral Aerobic Blood Culture - Preliminary No growth in 2 days 10/23/17 17:27 Blood - Peripheral Anaerobic Blood Culture - Preliminary No growth in 2 days 10/23/17 17:19 Blood - Peripheral Aerobic Blood Culture - Preliminary No growth in 2 days 10/23/17 17:19 Blood - Peripheral Anaerobic Blood Culture - Preliminary No growth in 2 days 10/23/17 20:45 Lumbar Puncture Gram Stain - Final 10/23/17 20:45 Lumbar Puncture CSF Culture - Preliminary No growth in 48 hours 10/23/17 17:25 Throat Group A Streptococcus Screen/Cult - Final No Beta Streptococci isolated. Assessment and Plan - Assessment (1) SIRS (systemic inflammatory response syndrome) Code(s): R65.10 - Systemic inflammatory response syndrome (SIRS) of non- infectious origin without acute organ dysfunction Status: Acute (2) Headache Code(s): R51 - Headache Status: Acute (3) Anxiety Code(s): F41.9 - Anxiety disorder, unspecified Status: Acute - Plan Mr. Murray is a 36 yo M with: Fever/MURRAY/photophobia/body aches Impression: Unclear etiology; suspect viral illness. CXR and UA unremarkable.No obvious risk factors for meningitis. Due to concern in ED for possible meningitis, CSF studies obtained CSF- WBC 25, Glucose 47, total protein 41.7 (not suggestive of bacterial or viral meningitis) Head CT unremarkable Labs: No leukocytosis, lactic acid 2.8-> 1.5. CRP mildly elevated. Influenza testing negative. UDS negative Cultures: blood and CSF studies pending; negative x2 days -Will continue empiric Vanc/Rocephin until cultures negative x3 days ( meningitis no longer likely but unclear etiology of symptoms so will look more for alternate diagnosis and await repeat labs before stopping) -Will follow blood/CSF cultures Pain with initiating voiding Impression: Unclear etiology; some epigastric pain on exam. UA unremarkable on admission -Will repeat UA Weakness Impression: patient reports general weakness; fiance reports weight loss. Seen to be weak in exam room, likely for acute viral illness. Possible psych component PT eval- wheeled walker recommended. -Will check TSH HIstory WPW Impression: Patient reports occasional fainting. Telemetry unremarkable since admission -Will keep on Telemetry Psychiatric Impression: Patient reports anxiety on Trazodone and Buspirone. Suspect there may be an anxiety component relating to current symptoms -Will continue Trazodone and Buspirone Lack of PCP -Will order CM consult to give list of local providers DVT PPX SCD's Code Status: Full code
[2017-10-25] MEDS: Vancomycin Inj 1,000 MG in Sodium Chlor 0.9% Inj 250 ML IV.SIG SCH (17:43)
[2017-10-25] MEDS: traZODone 50 MG Tablet PO SCH (21:06)
[2017-10-26] MEDS: Sod Chloride 0.9% Inj 1,000 ML IV.CONT SCH ×3 (01:10→17:51)
[2017-10-26] MEDS: Vancomycin Inj 1,000 MG in Sodium Chlor 0.9% Inj 250 ML IV.SIG SCH ×2 (01:11→09:00)
[2017-10-26 04:49] LABS: Bilirubin,Urine Negative (Negative); Clarity,Urine Clear (Clear); Color,Urine Yellow (Yellw/Straw); Glucose,Urine (UA) Negative (Negative); Leukocyte Esterase,Urine Negative (Negative); Mucus,Urine Few /lpf (Occasional); Nitrite,Urine Negative (Negative); Specific Gravity,Urine 1.016 (1.002-1.035); Squamous Epithelial Cell,Urine <1 /hpf (0-5)
[2017-10-26] MEDS: Senna/Docusate Sodium 8.6/50 MG Tablet PO SCH ×2 (08:22→20:12)
[2017-10-26] MEDS ORDERED: Pharmacy Ordered Lab Info OTHER ONE (08:45)
[2017-10-26 09:37] LABS: Alanine Aminotransferase 22 U/L (12-78); Albumin 3.2 g/dL (3.4-5.0); Anion Gap 9 meq/L (5-15); Aspartate Aminotransferase 50 U/L (15-37); Blood Urea Nitrogen 10 mg/dL (7-18); Calcium 8.5 mg/dL (8.5-10.1); Carbon Dioxide 23.1 meq/L (21.0-32.0); Chloride 106 meq/L (98-107); Glomerular Filtration Rate Greater Than 89 mL/min (>89); Glucose,Random 82 mg/dL (74-106); Sodium 138 meq/L (136-145)
[2017-10-26 09:45] LABS: Alkaline Phosphatase 67 U/L (45-117); Thyroid Stimulating Hormone 0.998 uIU/mL (0.358-3.740); Total Protein 7.4 g/dL (6.4-8.2)
[2017-10-26 11:48] LABS: Baso % (Auto) 0.5 % (0.0-2.0); Eos # (Auto) 0.1 th/mm3 (0.0-0.4); Hematocrit 36.4 % (39.0-51.0); Hemoglobin 12.6 gm/dL (13.0-17.0); Lymph # (Auto) 1.7 th/mm3 (1.0-4.8); Mean Corpuscular HGB Conc 34.7 % (32.0-36.0); Mean Corpuscular Hemoglobin 30.3 pg (27.0-34.0); Mean Corpuscular Volume 87.2 fL (80.0-100.0); Mean Platelet Volume 7.9 fL (7.0-11.0); Mono # (Auto) 0.6 th/mm3 (0.0-0.9); Neut # (Auto) 3.8 th/mm3 (1.8-7.7); Neut % (Auto) 61.5 % (16.0-70.0); Platelet Count 162 th/mm3 (150-450); Red Blood Count 4.18 mil/mm3 (4.50-5.90); Red Cell Distribution Width 15.3 % (11.6-17.2); White Blood Count 6.2 th/mm3 (4.0-11.0)
--- NOTE | 2017-10-26 12:41 | P.PNIM ---
Subjective Interval history: Mr. Murray was afebrile with stable VS overnight. Patient reports that he continues to have headache and photophobia today; they are somewhat improved but states that his headache is 8/10 in severity. Patient is concerned by persistent headache and requests second opinion. Patient does not report shortness of breath, chest pain, abnormal bowel movements or urination. Physical Exam Vital signs: Vital Signs 10/25/17 16:00 10/25/17 20:00 10/26/17 00:00 Temperature 97.9 F 98.7 F 98.3 F Pulse Rate 78 78 72 Respiratory Rate 19 18 18 Blood Pressure 132/62 110/63 Pulse Oximetry 99 99 98 10/26/17 04:00 10/26/17 08:00 10/26/17 12:00 Temperature 98 F 98.0 F 97.8 F Pulse Rate 74 82 79 Respiratory Rate 18 20 20 Blood Pressure 113/63 93/50 L 132/82 Pulse Oximetry 98 99 100 Intake & Output 10/25/17 10/26/17 10/26/17 18:59 06:59 18:59 Intake Total 2250 / 2250 240 / 240 2835 / 2835 Balance 2250 / 2250 240 / 240 2835 / 2835 Intake: IV 1350 / 1350 2835 / 2835 NS Inj 1,000 ML @ 100 mls/hr IV 1000 / 1000 .CONT .Q10H [facility] Rx#:[id number] Vancomycin Inj 1,000 MG In NS 250 / 250 500 / 500 Inj 250 ML @ 250 mls/hr IV.SIG Q8H [facility] Rx#:[id number] Rocephin Inj 2,000 MG In NS Inj 100 / 100 200 / 200 100 ML @ 200 mls/hr IV.SIG Q12H ABEL Rx#:[id number] Oral 900 / 900 240 / 240 Other: # Voids 5 1 Date of Last Bowel Movement 10/21/17 Narrative: GENERAL: no acute distress HEENT: EOM grossly I. In dark room due to photophobia NEURO: Normal CN. Grossly normal peripheral sensation/motor function PSYCH: Patient appears less anxious, answers questions more than previously MSK: Grossly normal ROM; some general weakness CARDIOVASCULAR: Regular rate and rhythm w/o murmurs. Grossly normal perfusion RESPIRATORY: CTAB; normal rate GASTROINTESTINAL: Abdomen soft, some suprapubic tenderness, nondistended. BS normal Results - Labs CBC & Chem 7: 10/26/17 11:03 10/26/17 08:30 Laboratory Results - last 24 hr 10/26/17 10/26/17 10/26/17 04:10 08:30 08:30 WBC RBC Hgb Hct MCV MCH MCHC RDW Plt Count MPV Neut % (Auto) Lymph % (Auto) [place] % (Auto) Eos % (Auto) Baso % (Auto) Neut # (Auto) Lymph # (Auto) [place] # (Auto) Eos # (Auto) Baso # (Auto) WBC Differential Differential Comment Sodium 138 Potassium 5.0 D Chloride 106 Carbon Dioxide 23.1 Anion Gap 9 BUN 10 Creatinine 0.72 Estimated GFR Greater than 89 Random Glucose 82 Calcium 8.5 Total Bilirubin 0.4 AST 50 H ALT 22 Alkaline Phosphatase 67 Total Protein 7.4 Albumin 3.2 L TSH 0.998 Urine Color Yellow Urine Clarity Clear Urine pH 6.0 Ur Specific [place] 1.016 Urine Protein Negative Urine Glucose (UA) Negative Urine Ketones Negative Urine Occult Blood Negative Urine Nitrate Negative Urine Bilirubin Negative Urine Urobilinogen Less than 2 Ur Leukocyte Esterase Negative Urine RBC 1 Urine WBC 4 Ur Squamous Epith Cells <1 Urine Mucus Few H Vancomycin Trough 20.1 H 10/26/17 11:03 WBC 6.2 RBC 4.18 L Hgb 12.6 L Hct 36.4 L MCV 87.2 MCH 30.3 MCHC 34.7 RDW 15.3 Plt Count 162 MPV 7.9 Neut % (Auto) 61.5 Lymph % (Auto) 27.0 [place] % (Auto) 9.0 H Eos % (Auto) 2.0 Baso % (Auto) 0.5 Neut # (Auto) 3.8 Lymph # (Auto) 1.7 [place] # (Auto) 0.6 Eos # (Auto) 0.1 Baso # (Auto) 0.0 WBC Differential . Differential Comment Auto diff final Sodium Potassium Chloride Carbon Dioxide Anion Gap BUN Creatinine Estimated GFR Random Glucose Calcium Total Bilirubin AST ALT Alkaline Phosphatase Total Protein Albumin TSH Urine Color Urine Clarity Urine pH Ur Specific [place] Urine Protein Urine Glucose (UA) Urine Ketones Urine Occult Blood Urine Nitrate Urine Bilirubin Urine Urobilinogen Ur Leukocyte Esterase Urine RBC Urine WBC Ur Squamous Epith Cells Urine Mucus Vancomycin Trough Microbiology 10/23/17 17:27 Blood - Peripheral Aerobic Blood Culture - Preliminary No growth in 3 days 10/23/17 17:27 Blood - Peripheral Anaerobic Blood Culture - Preliminary No growth in 3 days 10/23/17 17:19 Blood - Peripheral Aerobic Blood Culture - Preliminary No growth in 3 days 10/23/17 17:19 Blood - Peripheral Anaerobic Blood Culture - Preliminary No growth in 3 days 10/23/17 20:45 Lumbar Puncture Gram Stain - Final 10/23/17 20:45 Lumbar Puncture CSF Culture - Final No growth in 72 hours Assessment and Plan - Assessment (1) SIRS (systemic inflammatory response syndrome) Code(s): R65.10 - Systemic inflammatory response syndrome (SIRS) of non- infectious origin without acute organ dysfunction Status: Acute (2) Headache Code(s): R51 - Headache Status: Acute (3) Anxiety Code(s): F41.9 - Anxiety disorder, unspecified Status: Acute - Plan Mr. Murray is a 36 yo M with: Fever/MURRAY/photophobia/body aches Impression: Unclear etiology; suspect viral illness. CXR and UA unremarkable.No obvious risk factors for meningitis. Due to concern in ED for possible meningitis, CSF studies obtained CSF- WBC 25, Glucose 47, total protein 41.7 (not suggestive of bacterial or viral meningitis) Head CT unremarkable Labs: No leukocytosis, lactic acid 2.8-> 1.5. CRP mildly elevated. Influenza testing negative. UDS negative Cultures: blood and CSF cultures negative x3 days -Will stop empiric Vanc/Rocephin -Will try Sumatriptan 50mg -Will consider Neurology consult if Sumatriptan does not resolve symptoms Pain with initiating voiding Impression: Unclear etiology; some epigastric pain on exam. UA unremarkable on admission. Repeat UA 10/26 unremarkable. No new complaints reported today Weakness Impression: patient reports general weakness; fiance reports weight loss. Seen to be weak in exam room, likely for acute viral illness. Possible psych component TSH unremarkable PT eval- wheeled walker recommended. HIstory WPW Impression: Patient reports occasional fainting. Telemetry unremarkable since admission -Will keep on Telemetry Psychiatric Impression: Patient reports anxiety on Trazodone and Buspirone. Suspect there may be an anxiety component relating to current symptoms -Will continue Trazodone and Buspirone Lack of PCP -Will order CM consult to give list of local providers DVT PPX SCD's Code Status: Full Discharge Planning: Discharge today vs Neurology consult based on headache control
--- NOTE | 2017-10-26 17:03 | P.CONNEU ---
History of Present Illness Service: Neurology Primary Care Provider: No Primary Care Physician History of Present Illness: 36-year-old male admitted for headache body aches fevers. Apparently a fever before coming into the ER at night sweats. CSF studies were performed which demonstrated a white blood cell count 25. CAT scan was unremarkable. States he has a headache occurring in the front and back of his head constant. Minimal photophobia or phonophobia. Has felt a little nauseous. States prior to a week ago he did not really have much headaches. Review of Systems All other systems reviewed negative except as stated in HPI PMFSH - History History Provided By: Patient - Medical History Medical History: Medical History (Last Reviewed 10/25/17 @ 11:46 by Jayashree Olivier PT) Depression Hernia TIA (transient ischemic attack) Oxuwg-Epmojcfir-Jcefb (WPW) syndrome - Tobacco History Second Hand Smoke Exposure: No Tobacco Use In Past 30 Days: No Smoking Status: Never smoker Tobacco Type: Cigarettes - Alcohol History How Often Do You Have a Drink Containing Alcohol: Never - Substance Use History Substance History: No History of Abuse - Travel History Recent Travel in the [place] Within the Last 8 Weeks: No Recent Travel Out of the Country Within the Last 8 Weeks: No - Immunization History Tetanus Immunization: Unsure Hx Influenza Vaccine This Season: No Medications and Allergies Active Medications: Active Medications Acetaminophen (Tylenol) 650 mg PO Q4H PRN PRN Reason: Temp > 100.4 Al Hydroxide/Mg Hydroxide (Milk Of Magnesia Liq) 30 ml PO Q12H PRN PRN Reason: Mild Constipation Last Admin: 10/26/17 09:00 Dose: 30 ml Bisacodyl (Dulcolax Supp) 10 mg RECTAL DAILY PRN PRN Reason: SEVERE CONSITIPATION Sodium Chloride (Ns Inj) 1,000 mls @ 100 mls/hr IV.CONT .Q10H [facility] Last Admin: 10/26/17 15:24 Dose: 100 mls/hr Lactulose (Lactulose Liq) 30 ml PO DAILY PRN PRN Reason: SEVERE CONSITIPATION Morphine Sulfate (Morphine Inj) 2 mg IV.PUSH Q4H PRN PRN Reason: PAIN 6-10 Last Admin: 10/25/17 05:52 Dose: 2 mg Ondansetron HCl (Zofran Inj) 4 mg IV.PUSH Q6H PRN PRN Reason: NAUSEA OR VOMITING Last Admin: 10/26/17 12:00 Dose: 4 mg Oxycodone HCl (Roxicodone) 5 mg PO Q4H PRN PRN Reason: PAIN 3-5 Last Admin: 10/26/17 08:33 Dose: 5 mg Prochlorperazine Edisylate (Compazine Inj) 10 mg IV.PUSH Q6H PRN PRN Reason: MIGRAINE HEADACHE Last Admin: 10/24/17 18:07 Dose: 10 mg Senna/Docusate Sodium (Beti-Colace) 1 tab PO BID [facility] Last Admin: 10/26/17 08:22 Dose: 1 tab Sennosides (Senokot) 17.2 mg PO Q12H PRN PRN Reason: Moderate Constipation Temazepam (Restoril) 15 mg PO HS PRN PRN Reason: INSOMNIA Last Admin: 10/24/17 21:39 Dose: 15 mg Trazodone HCl (Desyrel) 50 mg PO HS [facility] Last Admin: 10/25/17 21:06 Dose: 50 mg Allergies Allergy/AdvReac Type Severity Reaction Status Date / Time peanut Allergy unsure Verified 10/23/17 16:58 Home Medications Medication Instructions Recorded Confirmed Type trazodone 50 mg PO DAILY 10/23/17 10/23/17 History Exam Vital signs: Vital Signs 10/25/17 20:00 10/26/17 00:00 10/26/17 04:00 Temperature 98.7 F 98.3 F 98 F Pulse Rate 78 72 74 Respiratory Rate 18 18 18 Blood Pressure 110/63 113/63 Pulse Oximetry 99 98 98 10/26/17 08:00 10/26/17 12:00 Temperature 98.0 F 97.8 F Pulse Rate 82 79 Respiratory Rate 20 20 Blood Pressure 93/50 L 132/82 Pulse Oximetry 99 100 Intake & Output 10/25/17 10/26/17 10/26/17 18:59 06:59 18:59 Intake Total 2250 / 2250 240 / 240 3835 / 3835 Balance 2250 / 2250 240 / 240 3835 / 3835 Intake: IV 1350 / 1350 3835 / 3835 NS Inj 1,000 ML @ 100 mls/hr IV 1000 / 1000 1000 / 1000 .CONT .Q10H [facility] Rx#:[id number] Vancomycin Inj 1,000 MG In NS 250 / 250 500 / 500 Inj 250 ML @ 250 mls/hr IV.SIG Q8H [facility] Rx#:[id number] Rocephin Inj 2,000 MG In NS Inj 100 / 100 200 / 200 100 ML @ 200 mls/hr IV.SIG Q12H [facility] Rx#:[id number] Oral 900 / 900 240 / 240 Other: # Voids 5 1 Date of Last Bowel Movement 10/21/17 Narrative: Sitting up in his bed no acute distress watching television when I walked in to see him. Awake alert oriented 3 visual reid full no pupillary asymmetry OU 3.5-2.5 mm tongue midline no focal weakness no drift neck supple gait not assessed secondary to fall risk - Constitutional no acute distress - Routine HEENT Exam Head: Present: normocephalic, atraumatic Eye: Present: EOMI Results - Labs CBC & Chem 7: 10/26/17 11:03 10/26/17 08:30 Labs: Laboratory Results - last 24 hr 10/26/17 10/26/17 10/26/17 04:10 08:30 08:30 WBC RBC Hgb Hct MCV MCH MCHC RDW Plt Count MPV Neut % (Auto) Lymph % (Auto) [place] % (Auto) Eos % (Auto) Baso % (Auto) Neut # (Auto) Lymph # (Auto) [place] # (Auto) Eos # (Auto) Baso # (Auto) WBC Differential Differential Comment Sodium 138 Potassium 5.0 D Chloride 106 Carbon Dioxide 23.1 Anion Gap 9 BUN 10 Creatinine 0.72 Estimated GFR Greater than 89 Random Glucose 82 Calcium 8.5 Total Bilirubin 0.4 AST 50 H ALT 22 Alkaline Phosphatase 67 Total Protein 7.4 Albumin 3.2 L TSH 0.998 Urine Color Yellow Urine Clarity Clear Urine pH 6.0 Ur Specific [place] 1.016 Urine Protein Negative Urine Glucose (UA) Negative Urine Ketones Negative Urine Occult Blood Negative Urine Nitrate Negative Urine Bilirubin Negative Urine Urobilinogen Less than 2 Ur Leukocyte Esterase Negative Urine RBC 1 Urine WBC 4 Ur Squamous Epith Cells <1 Urine Mucus Few H Vancomycin Trough 20.1 H 10/26/17 11:03 WBC 6.2 RBC 4.18 L Hgb 12.6 L Hct 36.4 L MCV 87.2 MCH 30.3 MCHC 34.7 RDW 15.3 Plt Count 162 MPV 7.9 Neut % (Auto) 61.5 Lymph % (Auto) 27.0 [place] % (Auto) 9.0 H Eos % (Auto) 2.0 Baso % (Auto) 0.5 Neut # (Auto) 3.8 Lymph # (Auto) 1.7 [place] # (Auto) 0.6 Eos # (Auto) 0.1 Baso # (Auto) 0.0 WBC Differential . Differential Comment Auto diff final Sodium Potassium Chloride Carbon Dioxide Anion Gap BUN Creatinine Estimated GFR Random Glucose Calcium Total Bilirubin AST ALT Alkaline Phosphatase Total Protein Albumin TSH Urine Color Urine Clarity Urine pH Ur Specific [place] Urine Protein Urine Glucose (UA) Urine Ketones Urine Occult Blood Urine Nitrate Urine Bilirubin Urine Urobilinogen Ur Leukocyte Esterase Urine RBC Urine WBC Ur Squamous Epith Cells Urine Mucus Vancomycin Trough Review/Management - Diagnosis (1) Headache Code(s): R51 - Headache Status: Acute Current Visit: Yes (2) SIRS (systemic inflammatory response syndrome) Code(s): R65.10 - Systemic inflammatory response syndrome (SIRS) of non- infectious origin without acute organ dysfunction Status: Acute Current Visit: Yes - Review/Management Plan: Headache likely associated with Sirs Fever on admission very mild CSF leukocytosis. Probable part of a viral syndrome Recommendations Neuro imaging exclude any mass lesion any venous occlusion with persistent vertex located headache Fioricet as needed Depakote ER Discussed with medical If imaging is negative, can be DC'd from our standpoint follow-up with his doctor for further pain management
[2017-10-26] MEDS ORDERED: Butalbital/APAP/Caff 50/325/40 MG Tablet PO PRN (18:00)
[2017-10-26] MEDS: traZODone 50 MG Tablet PO SCH (20:12)
[2017-10-26] MEDS: Divalproex 250 MG ER Tablet PO SCH (20:12)
[2017-10-26] MEDS: Temazepam 15 MG Capsule PO PRN (22:36)
[2017-10-27 07:24] LABS: Baso % (Auto) 0.7 % (0.0-2.0); Eos # (Auto) 0.2 th/mm3 (0.0-0.4); Eos % (Auto) 3.2 % (0.0-4.0); Hematocrit 35.6 % (39.0-51.0); Lymph # (Auto) 1.5 th/mm3 (1.0-4.8); Lymph % (Auto) 23.2 % (9.0-44.0); Mean Corpuscular HGB Conc 33.8 % (32.0-36.0); Mean Corpuscular Hemoglobin 29.4 pg (27.0-34.0); Mean Platelet Volume 7.7 fL (7.0-11.0); Mono # (Auto) 0.6 th/mm3 (0.0-0.9); Neut % (Auto) 62.9 % (16.0-70.0); Platelet Count 172 th/mm3 (150-450); Red Blood Count 4.09 mil/mm3 (4.50-5.90); Red Cell Distribution Width 15.2 % (11.6-17.2); White Blood Count 6.3 th/mm3 (4.0-11.0)
[2017-10-27 07:58] LABS: Anion Gap 9 meq/L (5-15); Blood Urea Nitrogen 11 mg/dL (7-18); Calcium 8.3 mg/dL (8.5-10.1); Carbon Dioxide 24.1 meq/L (21.0-32.0); Chloride 107 meq/L (98-107); Glomerular Filtration Rate Greater Than 89 mL/min (>89); Glucose,Random 95 mg/dL (74-106); Potassium 3.9 meq/L (3.5-5.1); Sodium 140 meq/L (136-145)
[2017-10-27] MEDS: Divalproex 250 MG ER Tablet PO SCH ×2 (08:46→21:03)
[2017-10-27] MEDS: Senna/Docusate Sodium 8.6/50 MG Tablet PO SCH ×2 (08:46→21:03)
[2017-10-27 09:06] LABS: Platelet Estimate Normal (Normal); Platelet Morphology Normal (Normal)
--- NOTE | 2017-10-27 10:24 | MR ---
EXAM DATE: 10/27/2017 10:10 AM EDT AGE/SEX: 36 years / Male INDICATIONS: Cephalgia. Headache and fever. Suboptimal recent head CT secondary to motion artifac t. CLINICAL DATA: This is the patient's initial encounter. Patient reports that signs and symptoms have been present for 2 days and indicates a pain score of 4/10. MEDICAL/SURGICAL HISTORY: . Tiffanie parkinson's white syndrome. Dementia. None. COMPARISON: [facility] [place], 10/23/2017. . TECHNIQUE: Multiplanar, multisequence examination of the brain was performed without and with 10 ml G adavist (gadobutrol) contrast as a single exam dose. FINDINGS: Cerebrum: The ventricles are normal for age. No evidence of midline shift, mass lesion, hemorrhage or acute infarction. No extraaxial fluid collections are seen. The pituitary gland and suprasellar cistern are normal in configuration. White Matter: No significant signal abnormalities are seen in the white matter. Posterior Fossa: The cerebellum and brainstem are intact. The 4th ventricle is midline. The cerebel lopontine angle is unremarkable. The cerebellar tonsils are normal in position. Diffusion Imaging: No focal areas of restricted diffusion are seen. No evidence of acute infarction . Extracranial: The visualized portions of the orbits and paranasal sinuses are unremarkable. Post Contrast: No abnormal areas of parenchymal or dural enhancement. No evidence of blood-brain ba rrier breakdown. CONCLUSION: 1. Unremarkable examination with no evidence of mass, hemorrhage or stroke. Electronically signed by: Chacorta Mark MD 10/27/2017 10:23 AM EDT
--- NOTE | 2017-10-27 10:26 | MR ---
EXAM DATE: 10/27/2017 10:10 AM EDT AGE/SEX: 36 years / Male INDICATIONS: Cephalgia. CLINICAL DATA: This is the patient's initial encounter. Patient reports that signs and symptoms have been present for 3 days and indicates a pain score of 4/10. MEDICAL/SURGICAL HISTORY: . [place] Parkinson white syndrome. Depression. None. COMPARISON: [facility] – [place], [place] HEAD W & W/O CONTRAST, 10/27/2017. . TECHNIQUE: 3D mcta-um-kzmtiy MRA was performed. Source images, multiplanar STS MIP, and 3D volum e MIP reconstructions were reviewed. FINDINGS: There is excellent visualization of the major intracranial arteries out to the second-order branch ve ssels. There is no evidence for aneurysm, vessel truncation or stenosis, and no evidence for vascula r malformation. CONCLUSION: 1. Unremarkable examination. Electronically signed by: Chacorta Mark MD 10/27/2017 10:25 AM EDT
--- NOTE | 2017-10-27 10:43 | P.PNIM ---
Subjective Interval history: Mr. Murray was afebrile with stable VS overnight. Patient reports consistent headache, photophobia, and back pain around site of LP. Patient thinks that both headache and photophobia have continued to improve somewhat. No reported shortness of breath or urinary changes. Patient still feels not like himself and still somewhat weak. Physical Exam Vital signs: Vital Signs 10/26/17 12:00 10/26/17 16:00 10/26/17 20:00 Temperature 97.8 F 97.7 F 97.9 F Pulse Rate 79 76 69 Respiratory Rate 20 20 18 Blood Pressure 132/82 132/86 122/76 Pulse Oximetry 100 100 100 10/26/17 23:43 10/27/17 08:00 Temperature 98 F 97.8 F Pulse Rate 65 86 Respiratory Rate 18 17 Blood Pressure 125/74 110/60 Pulse Oximetry 100 98 Intake & Output 10/26/17 10/27/17 10/27/17 18:59 06:59 18:59 Intake Total 4595 / 4595 480 / 480 1000 / 1000 Balance 4595 / 4595 480 / 480 1000 / 1000 Weight 59 kg Intake: IV 3835 / 3835 1000 / 1000 NS Inj 1,000 ML @ 100 mls/hr IV 1000 / 1000 1000 / 1000 .CONT .Q10H [facility] Rx#:[id number] Vancomycin Inj 1,000 MG In NS 500 / 500 Inj 250 ML @ 250 mls/hr IV.SIG Q8H [facility] Rx#:[id number] Rocephin Inj 2,000 MG In NS Inj 200 / 200 100 ML @ 200 mls/hr IV.SIG Q12H [facility] Rx#:[id number] Oral 760 / 760 480 / 480 Other: # Voids 5 3 Date of Last Bowel Movement 10/21/17 10/21/17 Narrative: GENERAL: no acute distress Skin: no visible lesions; some tattoos HEENT: EOM grossly I. In dark room due to photophobia. Photophobia persistent. white sclera/conjunctiva consistent with prior exams NEURO: Normal CN. Grossly normal peripheral sensation/motor function MSK: Grossly normal ROM; some general weakness CARDIOVASCULAR: Regular rate and rhythm w/o murmurs. Grossly normal perfusion RESPIRATORY: CTAB; normal rate GASTROINTESTINAL: Abdomen soft, some suprapubic tenderness, nondistended. BS normal Results - Labs CBC & Chem 7: 10/27/17 06:52 10/27/17 06:52 Laboratory Results - last 24 hr 10/26/17 10/26/17 10/27/17 08:30 11:03 06:52 WBC 6.2 6.3 RBC 4.18 L 4.09 L Hgb 12.6 L 12.0 L Hct 36.4 L 35.6 L MCV 87.2 87.0 MCH 30.3 29.4 MCHC 34.7 33.8 RDW 15.3 15.2 Plt Count 162 172 MPV 7.9 7.7 Prelim Diff (Auto) Slide review pending Neut % (Auto) 61.5 62.9 Lymph % (Auto) 27.[address] [place] % (Auto) 9.0 H 10.0 H Eos % (Auto) 2.0 3.2 Baso % (Auto) 0.5 0.7 Neut # (Auto) 3.8 4.0 Lymph # (Auto) 1.[address] [place] # (Auto) 0.6 0.6 Eos # (Auto) 0.1 0.2 Baso # (Auto) 0.0 0.0 WBC Differential . . Diff Scan Auto diff confirmed Differential Comment Auto diff final . Platelet Estimate Normal Platelet Morphology Normal Sodium Potassium Chloride Carbon Dioxide Anion Gap BUN Creatinine Estimated GFR Random Glucose Calcium Vancomycin Trough 20.1 H 10/27/17 06:52 WBC RBC Hgb Hct MCV MCH MCHC RDW Plt Count MPV Prelim Diff (Auto) Neut % (Auto) Lymph % (Auto) [place] % (Auto) Eos % (Auto) Baso % (Auto) Neut # (Auto) Lymph # (Auto) [place] # (Auto) Eos # (Auto) Baso # (Auto) WBC Differential Diff Scan Differential Comment Platelet Estimate Platelet Morphology Sodium 140 Potassium 3.9 D Chloride 107 Carbon Dioxide 24.1 Anion Gap 9 BUN 11 Creatinine 0.60 Estimated GFR Greater than 89 Random Glucose 95 Calcium 8.3 L Vancomycin Trough Microbiology 10/23/17 17:27 Blood - Peripheral Aerobic Blood Culture - Preliminary No growth in 3 days 10/23/17 17:27 Blood - Peripheral Anaerobic Blood Culture - Preliminary No growth in 3 days 10/23/17 17:19 Blood - Peripheral Aerobic Blood Culture - Preliminary No growth in 3 days 10/23/17 17:19 Blood - Peripheral Anaerobic Blood Culture - Preliminary No growth in 3 days 10/23/17 20:45 Lumbar Puncture Gram Stain - Final 10/23/17 20:45 Lumbar Puncture CSF Culture - Final No growth in 72 hours - Imaging Impressions Head MRI 10/27/17 16:25 CONCLUSION: 1. Unremarkable examination with no evidence of mass, hemorrhage or stroke. Head MRA 10/27/17 16:25 CONCLUSION: 1. Unremarkable examination. Assessment and Plan - Assessment (1) SIRS (systemic inflammatory response syndrome) Code(s): R65.10 - Systemic inflammatory response syndrome (SIRS) of non- infectious origin without acute organ dysfunction Status: Acute (2) Headache Code(s): R51 - Headache Status: Acute (3) Anxiety Code(s): F41.9 - Anxiety disorder, unspecified Status: Acute - Plan Mr. Murray is a 36 yo M with: Fever/MURRAY/photophobia/body aches Impression: Unclear etiology; suspect viral illness. CXR and UA unremarkable.No obvious risk factors for meningitis. Due to concern in ED for possible meningitis, CSF studies obtained. Pain control of headache somewhat with [place]; minimal relief with Sumatriptan CSF- WBC 25 (neutrophil predominant), Glucose 47, total protein 41.7 (not suggestive of bacterial or viral meningitis) Head CT unremarkable Labs: No leukocytosis, lactic acid 2.8-> 1.5. CRP mildly elevated. Influenza testing negative. UDS negative Cultures: blood and CSF cultures negative x3 days -HSV antibodies, PCR added -Stopped empiric Vanc/Rocephin 10/26 -Will try Sumatriptan 50mg -Neurology consulted -neuroimaging to exclude mass lesion vs venous occlusion since persistent vertex located headache -if negative, can be discharged to PCP for pain management -Fioricet as needed -Depakote ER -ID consulted for any further recommendations regarding evaluation of LABOR RELATIONS REPRESENTATIVE infection due to CSF leukocytosis Pain with initiating voiding Impression: Unclear etiology; some epigastric pain on exam. UA unremarkable on admission. Repeat UA 10/26 unremarkable. No new complaints reported today Weakness Impression: patient reports general weakness; fiance reports weight loss. Seen to be weak in exam room, likely for acute viral illness. Possible psych component TSH unremarkable PT eval- wheeled walker recommended HIstory WPW Impression: Patient reports occasional fainting -Telemetry unremarkable since admission Psychiatric Impression: Patient reports anxiety on Trazodone and Buspirone. Suspect there may be an anxiety component relating to current symptoms -Will continue Trazodone and Buspirone Lack of PCP -CM consulted to give list of local providers -Can f/u with [facility] DVT PPX SCD's Code Status: Full code Discharge Planning: Discharge today vs Neurology consult based on headache control
--- NOTE | 2017-10-27 10:53 | MR ---
EXAM DATE: 10/27/2017 10:41 AM EDT AGE/SEX: 36 years / Male INDICATIONS: Cephalgia. CLINICAL DATA: This is the patient's initial encounter. Patient reports that signs and symptoms have been present for 3 days and indicates a pain score of 4/10. MEDICAL/SURGICAL HISTORY: . Tiffanie-parkinson white syndrome. None. COMPARISON: [facility] – [place], [place] HEAD W & W/O CONTRAST, 10/27/2017. . TECHNIQUE: MR cerebral venography is performed without and with 10 ml Gadavist (gadobutrol) contrast (single exam dose). Source images, 3D volume MIP, and sliding thin slab MIP reconstructions were re viewed. FINDINGS: There is excellent visualization of the major intracranial arteries out to the second-order branch ve ssels. There is no evidence for aneurysm, vessel truncation or stenosis, and no evidence for vascula r malformation. CONCLUSION: 1. Negative study with no evidence of sinus thrombosis. Electronically signed by: Chacorta Mark MD 10/27/2017 10:51 AM EDT
[2017-10-27] MEDS ORDERED: Gadobutrol PF 10 MMOL/10 ML Vial (for RAD) IV.SIG ONE (11:08)
[2017-10-27] MEDS ORDERED: Ibuprofen 600 MG Tablet PO PRN (12:00)
--- NOTE | 2017-10-27 13:45 | MB ---
cc: Terrance Templetno MD DATE: 10/27/2017 REQUESTING PHYSICIAN: Nate Carreno MD REASON FOR CONSULTATION: Patient with headaches. Borderline fever on presentation. Please evaluate/assist for infectious causes, symptoms. HISTORY OF PRESENT ILLNESS: This is a 36-year-old white male who presented to the emergency department on 10/23/2017 after experiencing 3 days of headaches, body aches, nausea, photophobia. He reported he also had a cough and soreness of the throat. He said that he had a temperature of 101 at home. On presentation to the emergency department his temperature was 101 degrees. The patient complained of a severe headache and he had been taking ibuprofen at home. He tells me also that he was having chills, but he did not vomit and he had poor appetite and was not eating prior to admission. 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 He denies sick contacts. He has not traveled outside of [place] lately. He reports that his health has been good and he has not had the problems of headaches before. He denies use of drugs. He lives with his fiancee. His white blood cell count was normal. His CSF revealed 8 white cells, 18 red cells, 60% neutrophils, 30% lymphocyte and 2% monocyte, normal protein and normal glucose. He had received ceftriaxone initially and that has been discontinued. CSF for herpes PCR is pending. Gram stain and culture of the spinal fluid was unremarkable and has no growth. The patient denies problems with diarrhea or dysuria. He denies skin rash or any swelling of lymph nodes. PAST MEDICAL HISTORY: Depression, inguinal hernia, TIA at age 20, Uxigx-Vnuwfkuit-Nahxz syndrome. ALLERGIES: NO KNOWN DRUG ALLERGIES. THE PATIENT IS ALLERGIC TO PEANUTS. MEDICATIONS: 1. Oxycodone. 2. Compazine. 3. Beti-Colace. 4. Senokot. 5. Desyrel. 6. Restoril. SOCIAL HISTORY: Denies tobacco use, denies alcohol use, denies illicit drug use. FAMILY HISTORY: Noncontributory. REVIEW OF SYSTEMS: All systems have been reviewed and are negative, except for that noted in the history of present illness. PHYSICAL EXAMINATION: GENERAL: Thin male, in no acute distress. He is awake and alert and oriented. VITAL SIGNS: Includes temperature of 97.9, BP 119/67, respirations 18, heart rate 74. HEENT: The head is atraumatic. Extraocular movements grossly intact. Pupils reactive to light. No icterus. Oropharynx, mucosa is moist. No visible lesions. NECK: Supple without adenopathy. LYMPH NODES: No axillary or inguinal adenopathy. LUNGS: Clear to auscultation. HEART: Regular S1, S2 without audible murmurs, rubs, or gallops. ABDOMEN: Flat, soft, nontender. Normoactive bowel sounds. No hepatosplenomegaly. RECTAL: Not performed. EXTREMITIES: No clubbing, cyanosis, or edema. SKIN: No rash. NEUROLOGIC: No gross focal findings. PSYCHIATRIC: The patient is calm and cooperative. LABORATORY DATA: WBC 6.3, platelets 172, 62% neutrophils, 23% lymphocytes. Hemoglobin 12.0, creatinine 0.6, BUN 11, sodium 140. Liver function tests shows mild elevation in AST which is 50. MRI of the head is unremarkable. MRA of the head was unremarkable. MRV of the head to evaluate for sinus thrombosis was unremarkable. CT scan of the head showed no evidence of hemorrhage or mass effect. Chest x-ray showed no acute cardiopulmonary disease. ASSESSMENT AND PLAN: Patient with fever, headache, body aches, photophobia, nausea. Negative CSF as far as bacterial meningitis is a concern. The patient likely has a viral associated meningitis. Workup so far for other causes of the severe headache, including vascular disease, is unremarkable. RECOMMENDATIONS: 1. Continue to monitor the CSF. 2. Follow HSV PCR in the CSF and if negative, it is unlikely to be herpes virus induced meningitis. 3. Obtain HIV testing to make sure this is not a presentation of acute HIV disease. 4. Continue supportive care while awaiting further test results to come back and medications for the headache as needed. Thank you for this consultation. I will follow the patient's progress with you and will make further recommendations on followup if necessary. The presenting symptoms suggest acute viral infection. MD SHELBY Stone/gigi/jake , 12:29 PM , 12:44 PM [facility] SERVICES[facility]
[2017-10-27] MEDS: Sod Chloride 0.9% Inj 1,000 ML IV.CONT SCH ×2 (16:44→22:55)
[2017-10-27] MEDS: traZODone 50 MG Tablet PO SCH (21:03)
[2017-10-27] MEDS: Temazepam 15 MG Capsule PO PRN (22:53)
[2017-10-28] MEDS: Sod Chloride 0.9% Inj 1,000 ML IV.CONT SCH (03:31)
[2017-10-28 07:16] LABS: Baso # (Auto) 0.1 th/mm3 (0.0-0.2); Baso % (Auto) 0.7 % (0.0-2.0); Eos # (Auto) 0.2 th/mm3 (0.0-0.4); Eos % (Auto) 2.9 % (0.0-4.0); Hemoglobin 12.6 gm/dL (13.0-17.0); Lymph # (Auto) 1.7 th/mm3 (1.0-4.8); Lymph % (Auto) 23.3 % (9.0-44.0); Mean Corpuscular Hemoglobin 30.4 pg (27.0-34.0); Mean Platelet Volume 7.8 fL (7.0-11.0); Mono # (Auto) 0.6 th/mm3 (0.0-0.9); Mono % (Auto) 7.9 % (0.0-8.0); Neut # (Auto) 4.7 th/mm3 (1.8-7.7); Neut % (Auto) 65.2 % (16.0-70.0); Platelet Count 191 th/mm3 (150-450); Red Blood Count 4.14 mil/mm3 (4.50-5.90); Red Cell Distribution Width 15.2 % (11.6-17.2); White Blood Count 7.2 th/mm3 (4.0-11.0)
[2017-10-28 07:46] LABS: Alanine Aminotransferase 17 U/L (12-78); Albumin 3.3 g/dL (3.4-5.0); Anion Gap 7 meq/L (5-15); Aspartate Aminotransferase 8 U/L (15-37); Blood Urea Nitrogen 11 mg/dL (7-18); Calcium 8.2 mg/dL (8.5-10.1); Carbon Dioxide 25.2 meq/L (21.0-32.0); Chloride 108 meq/L (98-107); Glomerular Filtration Rate Greater Than 89 mL/min (>89); Glucose,Random 94 mg/dL (74-106); Sodium 140 meq/L (136-145)
[2017-10-28 07:47] LABS: Alkaline Phosphatase 62 U/L (45-117); Total Protein 7.1 g/dL (6.4-8.2)
[2017-10-28] MEDS: Senna/Docusate Sodium 8.6/50 MG Tablet PO SCH (08:27)
[2017-10-28] MEDS: Divalproex 250 MG ER Tablet PO SCH (08:27)
--- NOTE | 2017-10-28 10:29 | P.PNIM ---
Subjective Interval history: Mr. Murray was afebrile with stable VS overnight. Patient states that he has persistent headache and photophobia despite Ibuprofen and Depakote ER. He took Fioricet this morning and is not sure if it has helped. Patient confused by persistent symptoms. Patient does not report other symptoms at this time. Physical Exam Vital signs: Vital Signs 10/27/17 12:00 10/27/17 16:00 10/27/17 22:00 Temperature 97.9 F 97.8 F 98.9 F Pulse Rate 74 72 77 Respiratory Rate 19 18 18 Blood Pressure 119/67 122/75 116/78 Pulse Oximetry 99 100 99 10/28/17 00:00 10/28/17 08:00 Temperature 98.7 F 98.2 F Pulse Rate 75 79 Respiratory Rate 18 16 Blood Pressure 120/75 123/69 Pulse Oximetry 95 99 Intake & Output 10/27/17 10/28/17 10/28/17 18:59 06:59 18:59 Intake Total 1525 / 1525 1000 / 1000 420 / 420 Balance 1525 / 1525 1000 / 1000 420 / 420 Weight 55 kg Intake: IV 1000 / 1000 1000 / 1000 NS Inj 1,000 ML @ 100 mls/hr IV 1000 / 1000 1000 / 1000 .CONT .Q10H ABEL Rx#:[id number] Oral 525 / 525 420 / 420 Other: # Voids 6 3 Date of Last Bowel Movement 10/21/17 # Bowel Movements 1 Narrative: GENERAL: no acute distress Skin: no visible lesions; some tattoos HEENT: EOM grossly I. Photophobia persistent. white sclera/conjunctiva consistent with prior exams NEURO: Normal CN. Grossly normal peripheral sensation/motor function MSK: Grossly normal ROM; some general weakness CARDIOVASCULAR: Regular rate and rhythm w/o murmurs. Grossly normal perfusion RESPIRATORY: CTAB; normal rate GASTROINTESTINAL: Abdomen soft, some suprapubic tenderness, nondistended. BS normal Results - Labs CBC & Chem 7: 10/28/17 06:30 10/28/17 06:30 Laboratory Results - last 24 hr 10/27/17 10/28/17 10/28/17 13:55 06:30 06:30 WBC 7.2 RBC 4.14 L Hgb 12.6 L Hct 36.0 L MCV 87.0 MCH 30.4 MCHC 35.0 RDW 15.2 Plt Count 191 MPV 7.8 Prelim Diff (Auto) Slide review pending Neut % (Auto) 65.2 Lymph % (Auto) 23.3 Colbert % (Auto) 7.9 Eos % (Auto) 2.9 Baso % (Auto) 0.7 Neut # (Auto) 4.7 Lymph # (Auto) 1.7 Colbert # (Auto) 0.6 Eos # (Auto) 0.2 Baso # (Auto) 0.1 WBC Differential . Diff Scan Auto diff confirmed Differential Comment . Sodium 140 Potassium 4.0 Chloride 108 H Carbon Dioxide 25.2 Anion Gap 7 BUN 11 Creatinine 0.72 Estimated GFR Greater than 89 Random Glucose 94 Calcium 8.2 L Total Bilirubin 0.2 AST 8 L ALT 17 Alkaline Phosphatase 62 Total Protein 7.1 Albumin 3.3 L HIV 1&2 Ab/P24 Ag 4thGn Nonreactive Microbiology 10/23/17 17:27 Blood - Peripheral Aerobic Blood Culture - Preliminary No growth in 4 days 10/23/17 17:27 Blood - Peripheral Anaerobic Blood Culture - Preliminary No growth in 4 days 10/23/17 17:19 Blood - Peripheral Aerobic Blood Culture - Preliminary No growth in 4 days 10/23/17 17:19 Blood - Peripheral Anaerobic Blood Culture - Preliminary No growth in 4 days - Imaging Impressions Head/Brain Mag Res Venography 10/27/17 00:00 CONCLUSION: 1. Negative study with no evidence of sinus thrombosis. Head MRI 10/27/17 16:25 CONCLUSION: 1. Unremarkable examination with no evidence of mass, hemorrhage or stroke. Head MRA 10/27/17 16:25 CONCLUSION: 1. Unremarkable examination. Assessment and Plan - Assessment (1) SIRS (systemic inflammatory response syndrome) Code(s): R65.10 - Systemic inflammatory response syndrome (SIRS) of non- infectious origin without acute organ dysfunction Status: Acute (2) Headache Code(s): R51 - Headache Status: Acute (3) Anxiety Code(s): F41.9 - Anxiety disorder, unspecified Status: Acute - Plan Mr. Murray is a 36 yo M with: Fever/MURRAY/photophobia/body aches Impression: Unclear etiology; suspect viral illness. CXR and UA unremarkable.No obvious risk factors for meningitis. Due to concern in ED for possible meningitis, CSF studies obtained. Pain control of headache somewhat with Imperial; minimal relief with Sumatriptan CSF- WBC 25 (neutrophil predominant), Glucose 47, total protein 41.7 (not suggestive of bacterial or viral meningitis) Head CT unremarkable MRI, MRA imaging unremarkable Labs: No leukocytosis, lactic acid 2.8-> 1.5. CRP mildly elevated. Influenza testing negative. UDS negative Cultures: blood and CSF cultures negative x3 days -HSV antibodies, PCR pending -Stopped empiric Vanc/Rocephin 10/26 -Neurology consulted -neuroimaging to exclude mass lesion vs venous occlusion since persistent vertex located headache -Imaging negative; can be discharged to PCP for pain management -Headache control with Fioricet as needed, Depakote ER -ID consulted -HIV testing- negative -Continue to monitor CSF testing; supportive care while awaiting results Weakness Impression: patient reports general weakness; fiance reports weight loss. Seen to be weak in exam room, likely for acute viral illness. Possible psych component TSH unremarkable History WPW Impression: Patient reports occasional fainting -Telemetry unremarkable since admission Psychiatric Impression: Patient reports anxiety on Trazodone and Buspirone. Suspect there may be an anxiety component relating to current symptoms -Will continue Trazodone and Buspirone Lack of PCP -CM consulted to give list of local providers -Can f/u with [facility] DVT PPX SCD's Code Status: Full codee Discharge Planning: Patient cleared for discharge pending reassuring HSV results
[2017-10-28 17:22] VITALS: BP 120/75; PULSE 83; RESP 19; TEMP 98.1; O2SAT 100
[2017-10-29 17:54] LABS: HSV 1 IgM by IFA NEGATIVE; HSV 2 IgM by IFA NEGATIVE
--- NOTE | 2017-10-31 15:37 | P.DS ---
Date of admission: 10/23/17 19:28 Primary care physician: No Primary Care Physician Brief History from admission: This is a 36-year-old male with a PMH of Depression, WPW and h/o TIA who presented to the ER w/ complaints of severe headache, fever and generalized myalgias. Denies h/o headaches. Notes intense photophobia since today and non- productive cough. No sick contacts, no recent travel. On arrival, BP 125/75, HR 92, O2 sat 98% on RA, Temp 100.1. WBC normal however mildly elevated neutrophil count. Chemistry unremarkable except for Lactic Acid 2.8. UA negative. CT Head with no acute findings. CXR negative. LP recommended by ER physician, initially declined states "I want to think about it", however now agreeable to proceed. LP done successfully by ER physician, pending results. S /p Vanc/Rocephin. DS: Diagnosis - Discharge Diagnosis (1) SIRS (systemic inflammatory response syndrome) Status: Acute (2) Headache Status: Acute (3) Anxiety Status: Acute DS: Medications - Discharge Medications Prescriptions: [id number] 1 tab PO Q8HR PRN #30 tab PRN Reason: Headache divalproex [Depakote ER] 250 mg PO BID #60 tab ibuprofen 600 mg PO Q8HR PRN #30 tab PRN Reason: Headache oxycodone 5 mg PO Q6H PRN #12 tab PRN Reason: Acute Pain trazodone 200 mg PO HS #30 tab DS: Summary Hospital Course: Mr. Murray is a 36 yo M with PMH anxiety and WPW who presented to [facility] ED 10/23 with fever, photophobia, and headache. Patient had documented T 100.1 on admission but reported fever of ~101.5F. Labs on admission demonstrated lactic acid of 2.8 but no leukocytosis. Chemistry, CXR, and urinalysis were also normal. Head CT unremarkable; to rule out meningitis LP was performed in ED. Patient empirically placed on Vancomycin and Rocephin. CSF studies demonstrated WBC 25 w/ glucose 47 and total protein 41.7. Patient's blood and CSF cultures were negative but his fever and photophobia persisted. Neurology consulted; MRI and MRI imaging of brain were found to be normal. ID also consulted. HSV CSF and blood studies and HIV testing were also performed Patient's headache were managed by Neurology with Depmeyte and Maira. Patient also saw PT during hospitalization for weakness and was monitored on telemetry for history of WPW; no significant arrhythmias identified. Patient was discharged home 10/28 after reassurance of lack of bacterial or known viral etiology of symptoms; he will plan to establish with PCP for further pain control of his headaches. - Time Spent with Patient Total time spent providing and/or coordinating discharge services: - Quality: VTE Deep Vein Thrombosis/Pulmonary Embolism Present on Admission: No Exam Vital signs: T 98.1 HR 83 RR 19 BP 120/75 O2 sat 100% Narrative: GENERAL: no acute distress Skin: no visible lesions; some tattoos HEENT: EOM grossly I. Photophobia persistent. white sclera/conjunctiva consistent with prior exams NEURO: Normal CN. Grossly normal peripheral sensation/motor function MSK: Grossly normal ROM; some general weakness CARDIOVASCULAR: Regular rate and rhythm w/o murmurs. Grossly normal perfusion RESPIRATORY: CTAB; normal rate GASTROINTESTINAL: Abdomen soft, some suprapubic tenderness, nondistended. BS normal Results Procedures completed during hospitalization: LP 10/23 - Impressions ITS Impressions Chest X-Ray 10/23/17 16:58 CONCLUSION: No acute cardiopulmonary disease. There is no evidence of pneumonia. Head CT 10/23/17 16:58 CONCLUSION: 1. Suboptimal examination degraded by diffuse motion artifact. 2. No evidence of hemorrhage or mass effect. Head/Brain Mag Res Venography 10/27/17 00:00 CONCLUSION: 1. Negative study with no evidence of sinus thrombosis. Head MRI 10/27/17 16:25 CONCLUSION: 1. Unremarkable examination with no evidence of mass, hemorrhage or stroke. Head MRA 10/27/17 16:25 CONCLUSION: 1. Unremarkable examination. Discharge Plan - Discharge Disposition Patient Disposition: 01 Discharge Home - Discharge Condition Condition: Stable - Discharge Order Discharge Orders: Discharge Order (Routine); Ordered 10/28/17 Ordered By: Nate Carreno - Discharge Details Anticipated Discharge Date: 10/28/17 - Physicians Team Primary Care Provider: Primary Care Kevin,Maryuri Attending Provider: Charly Perez Other Providers: Steve Haney MD ; Terrance Templeton MD
== END 2017-10-28 17:31 | disposition home or self-care (01) ==
LOC: NEPC 16:31 → NEDA 19:28 → N07 21:00
PROVIDERS: ADMIT Hospitalist; ATTEND Hospitalist